=== PATIENT | male | born 1945 | race Two or more races ===

== ENCOUNTER → 2023-02-11 11:46 | Outpatient (CLI) | payer OTHER ==
[~2023-02-11 11:46] MED LIST: AVAPRO75 MG PO; D3 + K2 DOTS 11 EACH PO; KETO10TA2 PO; MAGNESIUM200 MG PO; MIRALAX17 GM PO; MULTIPLE VITAM1 EAC2 PO; TAMS0.4C PO; TRAMADOL HCL50 MG PO; TYLENOL ARTHRI650 MG PO
== END | disposition home or self-care (01) ==
LOC: EKG 11:46
PROVIDERS: ATTEND Internal Medicine
DX: Z01.810 Encounter for preprocedural cardiovascular examination (principal); I10 Essential (primary) hypertension

== ENCOUNTER 2023-02-12 06:54 | Day surgery (SDC) | payer OTHER ==
[~2023-02-12 06:54] MED LIST changes: -KETO10TA2 PO; -MIRALAX17 GM PO; -TAMS0.4C PO; -TRAMADOL HCL50 MG PO; -TYLENOL ARTHRI650 MG PO
[2023-02-12] MEDS ORDERED: MIRALAX17 GM PO (11:05)
[2023-02-12] MEDS ORDERED: TYLENOL ARTHRI650 MG PO (11:05)
[2023-02-12] MEDS ORDERED: KETO10TA2 PO (11:05)
[2023-02-12] MEDS ORDERED: TRAMADOL HCL50 MG PO (11:05)
[2023-02-13] MEDS ORDERED: TAMS0.4C PO (14:40)
== END 2023-02-12 17:55 | disposition home or self-care (01) ==
LOC: CIR.AMB 06:54
PROVIDERS: ATTEND Surgery
DX: K40.90 Unilateral inguinal hernia, without obstruction or gangrene, not specified as recurrent (principal); K42.9 Umbilical hernia without obstruction or gangrene; Z20.822 Contact with and (suspected) exposure to COVID-19; I10 Essential (primary) hypertension
CPT/HCPCS: 49650; 49591; C1781

== ENCOUNTER 2023-02-13 12:52 | Emergency (ER) | payer OTHER ==
[~2023-02-13] VITALS: Ht 162.6 cm; Wt 58.1 kg
[~2023-02-13 12:52] MED LIST changes: +KETO10TA2 PO; +MIRALAX17 GM PO; +TRAMADOL HCL50 MG PO; +TYLENOL ARTHRI650 MG PO
[2023-02-13] MEDS ORDERED: TAMS0.4C PO (14:40)
== END 2023-02-13 14:44 | disposition home or self-care (01) ==
LOC: ER 12:52
DX: R33.8 Other retention of urine (principal); I10 Essential (primary) hypertension